=== PATIENT | female | born 1945 | race Caucasian/White ===

== ENCOUNTER 2023-12-22 20:05 | Emergency (ER) | payer OTHER, SELFPAY ==
[2023-12-22 20:07] VITALS: BP 156/78
[2023-12-22 20:23] LABS: % Basophils 0.5 % (0-2); % Eosinophils 2.7 % (0-6); % Immature Granulocytes 0.2 % (0-0.5); % Lymphocytes 24.4 % (20.5-51.1); % Monocytes 8.7 % (1.7-9.3); % Neutrophils 63.5 % (42.2-75.2); Absolute Eosinophils 0.2 10^3/uL (0-0.7); Absolute Lymphocytes 1.4 10^3/uL (1.2-3.4); Absolute Monocytes 0.5 10^3/uL (0.1-0.6); Absolute Neutrophils 3.7 10^3/uL (1.4-6.5); Hematocrit 43.2 % (37.0-47.0); Hemoglobin 14.5 g/dL (12.0-16.0); Mean Corp Hgb Conc. 33.6 g/dL (33.0-37.0); Mean Corpuscular Hgb 30.9 pg (27.0-31.0); Mean Corpuscular Volume 92.1 fL (81.0-99.0); Mean Platelet Volume 9.7 fL (7.4-10.4); Nucleated Red Blood Cells % 0 %; Platelet Count 232 10^3/uL (130-400); Red Blood Cell Count 4.69 10^6/uL (4.20-5.40); Red Cell Dist. Width 12.9 % (11.5-14.5); Urine Albumin Negative (Neg - Trace); Urine Bilirubin Negative (Negative); Urine Character Slightly Cloudy (Clear); Urine Color Yellow; Urine Glucose Negative (Negative); Urine Ketone Negative (Negative); Urine Leukocyte 1+ (Negative); Urine Nitrite Negative (Negative); Urine Occult Blood Negative (Negative); Urine Urobilinogen Negative (Neg - 1+); White Blood Cell Count 5.9 10^3/uL (4.8-10.8)
[2023-12-22 20:30] LABS: Urine Amorphous Seen; Urine Bacteria Few (Negative)
[2023-12-22 20:36] LABS: ALT (SGPT) 22 U/L (0-35); AST (SGOT) 34 U/L (14-36); Albumin 4.4 g/dl (3.5-5.0); Alkaline Phosphatase 90 U/L (38-126); Blood Urea Nitrogen 17 mg/dl (7-17); Calcium 9.5 mg/dl (8.4-10.2); Carbon Dioxide 35 mmol/L (22-30); Chloride 98 mmol/L (98-107); Glucose 103 mg/dl (70-99); Lipase 121 U/L (23-300); Potassium 4.3 mmol/L (3.5-5.1); Sodium 138 mmol/L (135-145); Total Bilirubin 0.6 mg/dl (0.2-1.3); Total Protein 7.1 g/dl (6.3-8.2); eGFR > 60.00
--- NOTE | 2023-12-22 20:41 | ED.GENMED ---
History of Present Illness
<Ahsan Stone DO, Resident - Last Filed: 12/22/23 21:14>
General
Chief Complaint: Abdominal Pain
Source: patient
Time Seen by Provider: 12/22/23 20:33
History of Present Illness
History of Present Illness:
Patient is a 77 YO F with abdominal pain since this morning. She reports pain since this morning, no NVD, no hematochezia, or urinary symptoms. She had a normal bowel movement prior to pain onset and took milk of magnesia. Has not had a bowel
movement since. Last colonoscopy was 11 years ago and showed diverticulitis.
<Hima Hayden, DO - Last Filed: 12/22/23 22:33>
History of Present Illness
History of Present Illness:
Patient is a 77 YO F with abdominal pain since this morning. She reports pain since this morning, no NVD, no hematochezia, or urinary symptoms. She had a normal bowel movement prior to pain onset and took milk of magnesia. Has not had a bowel
movement since. Last colonoscopy was 11 years ago and showed diverticulosis.
Past History
<Ahsan Stone DO, Resident - Last Filed: 12/22/23 21:14>
Social History
Personal:
Living: with family
Employment: Retired
Review of Systems
<Ahsan Stone DO, Resident - Last Filed: 12/22/23 21:14>
Review of Systems
Constitutional: Reports no symptoms
EENT: Reports no symptoms
Respiratory: Reports no symptoms
Cardiac: Reports no symptoms
ABD/GI: Reports abdominal pain and pain
: Reports no symptoms
Musculoskeletal: Reports no symptoms
Neurological: Reports no symptoms
Phy Exam
<Ahsan Stone DO, Resident - Last Filed: 12/22/23 21:14>
General Physical Exam
General Presentation: well appearing
General age: appears stated age
General Skin: warm and dry
General Habitus: normal
General Mental: alert
General Hydration: appears well hydrated
Cardiovascular Exam
Cardiovascular Exam: regular rate/rhythm, no edema, no gallop, no JVD, no murmur and normal peripheral pulses
Pulmonary Exam
Pulmonary Exam: lungs clear, no respiratory distress, no rales, chest non tender, no crackles, no rhonchi, no stridor, no wheezing and no cough
Gastrointestinal Exam
Gastrointestinal Exam: normal bowel sounds, soft and tender
Palpation: left lower quadrant: Moderate tenderness and right lower quadrant: Severe tenderness
Course
<Ahsan Stone DO, Resident - Last Filed: 12/22/23 21:14>
Orders/Labs/Results
Orders:
Orders
12/22/23 20:09
IV Insert/Care/Rem.- Treatment PRN
12/22/23 20:16
Complete Blood Count/With Diff Urgent
Comprehensive Metabolic Panel Urgent
Lipase Urgent
Urinalysis Reflex To Culture Urgent
Date Specimen was Collected: 12/22/23
Time Specimen was Collected: 20:09
Urine Microscopic Reflex Cult Urgent
Urine Culture Urgent
[facility] Source: U
Specimen Description:
Date Specimen was Collected: 12/22/23
Time Specimen was Collected: 20:09
12/22/23 20:56
CT Abd/pel W Iv And Oral Contr Urgent
Comment:
Reason For Exam: abdominal pain
Iohexol [Omnipaque] See Protocol PO NOW STA
12/23/23 00:35
Magnesium Citrate [Citroma] 150 ml PO ONCE ONE
Abnormal Lab Results
12/22/23
20:16
Carbon Dioxide 35 H mmol/L
(22-30)
Glucose 103 H mg/dl
(70-99)
Leukocyte Esterase Rfl 1+ A
(Negative)
Urine Bacteria (Reflex) Few A
(Negative)
12/22/23 20:16
12/22/23 20:16
Vital Signs
Initial and Last Documented VS:
Initial Vital Signs
Temp Pulse Resp BP Pulse Ox
98.1 F 82 19 156/78 95
12/22/23 20:07 12/22/23 20:07 12/22/23 20:07 12/22/23 20:07 12/22/23 20:07
Last Documented Vital Signs
Temp Pulse Resp BP Pulse Ox
98.2 F 72 16 155/77 94
12/22/23 23:57 12/22/23 23:57 12/22/23 23:57 12/22/23 23:57 12/22/23 23:57
<Hima Hayden, DO - Last Filed: 12/22/23 22:33>
Orders/Labs/Results
Orders:
Orders
12/22/23 20:09
IV Insert/Care/Rem.- Treatment PRN
12/22/23 20:16
Complete Blood Count/With Diff Urgent
Comprehensive Metabolic Panel Urgent
Lipase Urgent
Urinalysis Reflex To Culture Urgent
Date Specimen was Collected: 12/22/23
Time Specimen was Collected: 20:09
Urine Microscopic Reflex Cult Urgent
Urine Culture Urgent
[place] Source: U
Specimen Description:
Date Specimen was Collected: 12/22/23
Time Specimen was Collected: 20:09
12/22/23 20:56
CT Abd/pel W Iv And Oral Contr Urgent
Comment:
Reason For Exam: abdominal pain
Iohexol [Omnipaque] See Protocol PO NOW STA
12/23/23 00:35
Magnesium Citrate [Citroma] 150 ml PO ONCE ONE
Abnormal Lab Results
12/22/23
20:16
Carbon Dioxide 35 H mmol/L
(22-30)
Glucose 103 H mg/dl
(70-99)
Leukocyte Esterase Rfl 1+ A
(Negative)
Urine Bacteria (Reflex) Few A
(Negative)
12/22/23 20:16
12/22/23 20:16
Vital Signs
Initial and Last Documented VS:
Initial Vital Signs
Temp Pulse Resp BP Pulse Ox
98.1 F 82 19 156/78 95
12/22/23 20:07 12/22/23 20:07 12/22/23 20:07 12/22/23 20:07 12/22/23 20:07
Last Documented Vital Signs
Temp Pulse Resp BP Pulse Ox
98.2 F 72 16 155/77 94
12/22/23 23:57 12/22/23 23:57 12/22/23 23:57 12/22/23 23:57 12/22/23 23:57
<Rubi Carney DO - Last Filed: 12/23/23 00:39>
Orders/Labs/Results
Orders:
Orders
12/22/23 20:09
IV Insert/Care/Rem.- Treatment PRN
12/22/23 20:16
Complete Blood Count/With Diff Urgent
Comprehensive Metabolic Panel Urgent
Lipase Urgent
Urinalysis Reflex To Culture Urgent
Date Specimen was Collected: 12/22/23
Time Specimen was Collected: 20:09
Urine Microscopic Reflex Cult Urgent
Urine Culture Urgent
[place] Source: U
Specimen Description:
Date Specimen was Collected: 12/22/23
Time Specimen was Collected: 20:09
12/22/23 20:56
CT Abd/pel W Iv And Oral Contr Urgent
Comment:
Reason For Exam: abdominal pain
Iohexol [Omnipaque] See Protocol PO NOW STA
12/23/23 00:35
Magnesium Citrate [Citroma] 150 ml PO ONCE ONE
Abnormal Lab Results
12/22/23
20:16
Carbon Dioxide 35 H mmol/L
(22-30)
Glucose 103 H mg/dl
(70-99)
Leukocyte Esterase Rfl 1+ A
(Negative)
Urine Bacteria (Reflex) Few A
(Negative)
12/22/23 20:16
12/22/23 20:16
Vital Signs
Initial and Last Documented VS:
Initial Vital Signs
Temp Pulse Resp BP Pulse Ox
98.1 F 82 19 156/78 95
12/22/23 20:07 12/22/23 20:07 12/22/23 20:07 12/22/23 20:07 12/22/23 20:07
Last Documented Vital Signs
Temp Pulse Resp BP Pulse Ox
98.2 F 72 16 155/77 94
12/22/23 23:57 12/22/23 23:57 12/22/23 23:57 12/22/23 23:57 12/22/23 23:57
<Ahsan Stone DO, Resident - Last Filed: 12/22/23 21:14>
MDM/Problems Addressed
Differential Diagnosis Includes:
appendicitis, diverticulitis
MDM/Problems Addressed:
Pt is a 77 YO F with abdominal pain since this morning. She is stable. CT AP with oral and IV contrast ordered.
<Rubi Carney DO - Last Filed: 12/23/23 00:39>
*Radiology
Radiology exam reviewed: radiology read reviewed (CAT scan shows constipation otherwise unremarkable.)
*Pulse Oximetry
Patient hypoxic: no
*Critical Care Note
Total Time (30-74mins, 75-104mins- exclusive of procedures): Not Applicable
ED Attending Note
<Ahsan Stone DO, Resident - Last Filed: 12/22/23 21:14>
-
Portions of this chart may have been created with voice recognition software.� Occasional wrong word or��sound alike� substitutions may have occurred due to the inherent limitations of voice recognition software.
<Hima Hayden, DO - Last Filed: 12/22/23 22:33>
ED Attending Note
Patient seen and examined by attending physician: Yes
I performed a history and physical exam of patient and discussed management with resident, I reviewed resident's note and agree with documented findings and plan of care.: Yes
ED Attending Note:
I have reviewed and agree with history and plan by Ahsan Stone.
My exam revealed
Physical Exam
General: Afebrile
Neck: supple. no meningeal signs. normal posterior pharynx
Heart: s1/s2 regular rate and rhythm, no murmur. equal radial
pulses.
HEENT: Pupils equal round reactive to light, EOMI
Lungs: no acute respiratory distress. clear bilaterally
Abdomen: normal bowel sounds. Right lower quadrant tenderness. No CVAT
Neuro: alert and oriented. no focal neurological deficits cranial nerves II through XII intact
Skin: no rash
Psychiatric: well kept. interactive and cooperative
Extremities: no edema. no calf tenderness. negative homans. good distal pulses
77-year-old female with right lower quad abdominal pain. Vital signs stable. CT abdomen pelvis pending.
<Rubi Carney, DO - Last Filed: 12/23/23 00:39>
ED Attending Note
ED Attending Note:
I have reviewed and agree with history and plan by Ahsan Stone.
My exam revealed
Physical Exam
General: Afebrile
Neck: supple. no meningeal signs. normal posterior pharynx
Heart: s1/s2 regular rate and rhythm, no murmur. equal radial
pulses.
HEENT: Pupils equal round reactive to light, EOMI
Lungs: no acute respiratory distress. clear bilaterally
Abdomen: normal bowel sounds. Right lower quadrant tenderness. No CVAT
Neuro: alert and oriented. no focal neurological deficits cranial nerves II through XII intact
Skin: no rash
Psychiatric: well kept. interactive and cooperative
Extremities: no edema. no calf tenderness. negative homans. good distal pulses
77-year-old female with right lower quad abdominal pain. Vital signs stable. CT abdomen pelvis pending.
12/23/2023 0036 AM
CAT scan shows constipation otherwise unremarkable.
Patient remains well in appearance.
Abdomen is soft without appreciable tenderness.
Recommend initiating a daily fiber supplement such as Metamucil versus daily MiraLAX. Staying well-hydrated on a daily basis.
Will give a dose of magnesium citrate now.
Prompt follow-up with PCP for recheck.
Discharge Plan
Departure
Patient Disposition: Home (Routine Discharge)
Date of Disposition: 12/23/23
Time of Disposition: 00:38
Patient with high blood pressure during this ER visit?: No
Condition: Good
Discharge Problem:
Acute constipation
Instructions: Constipation, Adult (DC)
Prescriptions:
No Action
multivitamin Tablet
1 tab PO DAILY
calcium carbonate [Caltrate 600] 600 mg calcium (1,500 mg) Tablet
600 mg PO DAILY
red yeast rice
1 tab PO DAILY
Patient Comments:
pt does not know mg
Referrals:
Elida Perez MD [Active] - Call in 1-3 days for appt
UNKNOWN - PT DOES,NOT KNOW [Family Provider] -
Interventions
Interventions:
*Risk Screen - Suicide Last Done: 12/22/23 20:07
*General Assessment Last Done: 12/22/23 20:07
*Neglect/Abuse Screening Last Done: 12/22/23 20:07
ED- Fall Risk Assessment Last Done: 12/22/23 21:06
*ED COVID-19 Vaccine History Last Done: 12/22/23 20:07
WR-Mmbnmy-[id number] Assessment Last Done: 12/22/23 23:57
Discharge Date and Time
Print Language: VIETNAMESE
[2023-12-22 20:55] VITALS: BMI 24.7
[2023-12-22] MEDS: OMNIPAQUE 50 ML PO (21:08)
[2023-12-22 22:00] VITALS: BP 159/72
[2023-12-22 23:57] VITALS: BP 155/77
--- NOTE | 2023-12-23 01:04 | EDRN ---
Informed by Dr Carney that she gave verbal discharge instructions to pt and pt's asked for something 'to get her started' tonight. Dr Carney says she told them the nurse would be in with discharge paperwork and will give 1/2 bottle Mag Citrate
in ED. Per Darvin Nam [employer] OPER[employer], shortly after Dr Carney left pt's room, pt's came to desk and said they were done and demanded the IV be removed so Darvin Nam NP asked MIKI Ramirez to remove pt's IV which she did. When this RN came out of another pt's
room and went to discharge pt, noted pt and her were gone then found out what transpired. Dr Carney was informed pt and her left without paperwork and Mag Citrate and said she gave them thorough verbal discharge instructions - no
further action needed.
== END 2023-12-23 01:04 | disposition home or self-care (01) ==
LOC: EMR 20:05
PROVIDERS: EMERGENCY PHYSICIAN Emergency Medicine
DX: K59.09 Other constipation (principal)
CPT/HCPCS: 99284; 74177; 80053; 81003; 81015; 83690; 85025; 87086; Q9967

== ENCOUNTER → 2024-03-09 09:57 | Outpatient (REF) | payer OTHER, SELFPAY ==
[2024-03-09 11:12] LABS: % Basophils 0.9 % (0-2); % Eosinophils 5.6 % (0-6); % Lymphocytes 28.8 % (20.5-51.1); % Neutrophils 54.7 % (42.2-75.2); Absolute Eosinophils 0.2 10^3/uL (0-0.7); Absolute Lymphocytes 0.9 10^3/uL (1.2-3.4); Absolute Monocytes 0.3 10^3/uL (0.1-0.6); Absolute Neutrophils 1.8 10^3/uL (1.4-6.5); Hematocrit 43.3 % (37.0-47.0); Mean Corp Hgb Conc. 32.3 g/dL (33.0-37.0); Mean Platelet Volume 9.9 fL (7.4-10.4); Nucleated Red Blood Cells % 0 %; Platelet Count 219 10^3/uL (130-400); Red Blood Cell Count 4.51 10^6/uL (4.20-5.40); Red Cell Dist. Width 12.5 % (11.5-14.5); White Blood Cell Count 3.2 10^3/uL (4.8-10.8)
[2024-03-09 11:49] LABS: ALT (SGPT) 20 U/L (0-35); AST (SGOT) 27 U/L (14-36); Alkaline Phosphatase 82 U/L (38-126); Blood Urea Nitrogen 16 mg/dl (7-17); Calcium 9.5 mg/dl (8.4-10.2); Carbon Dioxide 31 mmol/L (22-30); Chloride 103 mmol/L (98-107); Glucose 88 mg/dl (70-99); HDL Cholesterol 69 mg/dl; LDL Cholesterol, Calculated 145 mg/dl; Potassium 4.6 mmol/L (3.5-5.1); Sodium 143 mmol/L (135-145); Total Bilirubin 0.6 mg/dl (0.2-1.3); Total Cholesterol 231 mg/dl (50-199); Total Protein 6.5 g/dl (6.3-8.2); Triglyceride 88 mg/dl (10-149); Very Low Density Lipoprotein 17 mg/dl (0-30); eGFR > 60.00
== END ==
LOC: REG 09:57
PROVIDERS: ATTENDING PHYSICIAN Family Medicine
DX: E78.00 Pure hypercholesterolemia, unspecified (principal); R53.83 Other fatigue; R79.9 Abnormal finding of blood chemistry, unspecified
CPT/HCPCS: 36415; 80053; 80061; 85025

== ENCOUNTER → 2024-05-22 07:45 | Outpatient (REF) | payer OTHER, SELFPAY | LOC: RAD 07:45 | PROVIDERS: ATTENDING PHYSICIAN Family Medicine | DX: R22.1 Localized swelling, mass and lump, neck (principal) | CPT/HCPCS: 76536 ==

== ENCOUNTER → 2024-07-01 08:15 | Outpatient (REF) | payer OTHER, SELFPAY ==
[2024-07-01 08:45] VITALS: BP 162/74; BP_SYST 75
== END ==
LOC: RADI 08:15
PROVIDERS: ATTENDING PHYSICIAN Family Medicine
DX: E04.1 Nontoxic single thyroid nodule (principal)
CPT/HCPCS: 88173; 10005

== ENCOUNTER → 2025-02-16 09:13 | Outpatient (REF) | payer OTHER, SELFPAY | LOC: RAD 09:13 | PROVIDERS: FAMILY PHYSICIAN Family Medicine | DX: M19.041 Primary osteoarthritis, right hand (principal); M16.12 Unilateral primary osteoarthritis, left hip | CPT/HCPCS: 73120; 73502 ==